=== PATIENT | male | born 1950 | race Caucasian/White ===

== ENCOUNTER 2024-09-08 15:49 | Emergency (ER) | payer OTHER ==
[~2024-09-08] VITALS: Ht 193 cm; Wt 113.6 kg
--- NOTE | 2024-09-08 16:04 | ED.PDOC ---
Altered Mental Status HPI Comments This is a 73 year old male BIBA presenting to the ED with chief complaint of ALOC. EMS reports that the patient had been last seen well at 3pm yesterday when the patient went to bed early due to working all day. EMS relays that the patient's daughter noted the patient was altered today and not acting appropriately, which she notes is most likely due to a UTI as the patient has history of them and he currently smells of urine. Patient denies any fever, chills, dysuria, hematuria, chest pain, or SOB. Time Seen by MD: 16:00 Reviewed Notes: Nurses Notes, Lap Runner Notes, Medications, Allergies Information Source: Patient, Emergency Med Personnel Mode of Arrival: EMS Severity: Moderate, Unable to Care for Self Timing: Hours Duration: Since onset Prehospital treatment: None Quality: Decreased Alertness, Change in Behavior, Confusion Recent: Urinary Symptoms History of: None Past Medical History PAST MEDICAL HISTORY: UTI'S Surgical History (Other): Rt toe amputations Family History Family History: Reviewed,noncontributory to illness Social History Smoker: Non-Smoker Alcohol: Denies ETOH Use Drugs: Denies Drug Use Lives In: Home Constitutional: denies: chills, diaphoresis, fatigue, fever, malaise, sweats, weakness, others EENTM: denies: blurred vision, double vision, ear bleeding, ear discharge, ear drainage, ear pain, ear ringing, eye pain, eye redness, hearing loss, mouth pain, mouth swelling, nasal discharge, nose bleeding, nose congestion, nose pain, photophobia, tearing, throat pain, throat swelling, voice changes, others Respiratory: denies: cough, hemoptysis, orthopnea, SOB at rest, shortness of breath, SOB with excertion, stridor, wheezing, others Cardiovascular: denies: chest pain, dizzy spells, diaphoresis, Dyspnea on exertion, edema, irregular heart beat, left arm pain, lightheadedness, palpitations, PND, syncope, others Gastrointestinal: denies: abdomen distended, abdominal pain, blood streaked bowels, constipated, diarrhea, dysphagia, difficulty swallowing, hematemesis, melena, nausea, poor appetite, poor fluid intake, rectal bleeding, rectal pain, vomiting, others Genitourinary: denies: burning, dysuria, flank pain, frequency, hematuria, incontinence, penile discharge, penile sore, pain, testicle pain, testicle swelling, urgency, others Neurological: denies: dizziness, fainting, headache, left sided numbness, left sided weakness, numbness, paresthesia, pre-existing deficit, right sided numbness, right sided weakness, seizure, speech problems, tingling, tremors, weakness, others Musculoskeletal: denies: back pain, gout, joint pain, joint swelling, muscle pain, muscle stiffness, neck pain, others Integumetry: denies: bruises, change in color, change in hair/nails, dryness, laceration, lesions, lumps, rash, wounds, others Allergic/Immunocompromised: denies: Difficulty Healing, Frequent Infections, Hives, Itching, others Hematologic/Lymphatic: denies: anemia, blood clots, easy bleeding, easy bruising, swollen glands, others Endocrine: denies: excessive hunger, excessive sweating, excessive thirst, excessive urination, flushing, intolerance to cold, intolerance to heat, unexplained weight gain, unexplained weight loss, others Psychiatric: denies: anxiety, bipolar disorder, depression, hopeless, panic disorder, schizophrenia, sleepless, suicidal, others Unable to Obtain due to: Altered Mental Status All Other Systems: Reviewed and Negative Physical Exam General Appearance: Moderate Distress, Normal HEENT: Normal ENT Inspection, Pharynx Normal, TMs Normal Neck: Full Range of Motion, Non-Tender, Normal, Normal Inspection Respiratory: Chest Non-Tender, Lungs Clear, No Accessory Muscle Use, No Respiratory Distress, Normal Breath Sounds Cardiovascular: No Edema, No JVD, No Murmur, No Gallop, Normal Peripheral Pulses, Regular Rate/Rhythm Breast Exam: Deferred Gastrointestinal: No Organomegaly, Non Tender, No Pulsatile Mass, Normal Bowel Sounds, Soft Genitalia: Deferred Pelvic: Deferred Rectal: Deferred Extremities: No calf tenderness, Normal capillary refill, Non-tender, No pedal edema, Other (Old right toe amputation) Musculoskeletal : Apperance: Normal Neurologic: Disoriented Cerebellar Function: NOT DONE Reflexes: NOT DONE Skin: Dry, Normal Color, Warm Peripheral Pulses: 3+ Radial (R), 3+ Radial (L) Lymphatic: No Adenopathy Was a procedure done? Was a procedure done?: No Differential Diagnosis (ALOC) Differential Diagnosis: Dehydration, Encephalopathy, Sepsis X-Ray, Labs, Meds, VS Patient disoriented. Last seen normal yesterday. He is comfortable. Vitals stable. Possible urosepsis. Establish intravenous access. Was given fluids. Was given Rocephin. Unable to get a good history from the patient. No sign of any trauma. Continue to monitor. Time of 1ST Reevaluation: 17:00 Reevaluation 1ST: Unchanged Patient Education/Counseling: Diagnosis, Treatment Family Education/Counseling: No Family Present SEPSIS Sepsis Screen Physician Orders Head Without Contrast (09/08/24 16:01) Complete Blood Count (09/08/24 16:01) Urinalysis (09/08/24 16:01) Basic Metabolic Panel (09/08/24 16:01) Departure 1 Departure Time of Disposition: 16:16 Impression: Primary Impression: Metabolic encephalopathy Disposition: ADMITTED INPATIENT Admit to: Med Surg Condition: Guarded Critical Care Note Critical Care Time?: Yes (90 min-critical care time only) Critical care comment: Monitoring mental status Stability Stability form required: No Heart Score Heart Score: Heart Score Response (Comments) Value History N/A 0 EKG N/A 0 Age N/A 0 Risk Factors N/A 0 Troponin N/A 0 Total 0 I personally scribed for MARY ANNE WHITE MD ([email or web address]) on 09/08/24 at 16:04. Electronically submitted by Wale Mims ([email or web address]). MARY ANNE WHITE MD Sep 08, 2024 16:04
[2024-09-08 16:37] LABS: Hematocrit 45.5 % (41.0-53.0); Hemoglobin 15.2 g/dL (13.5-17.5); Mean Corpuscular Hemoglobin 31.7 pg (28.0-32.0); Mean Corpuscular Volume 94.8 fL (80.0-100.0); Nucleated Red Blood Cells % 0.1 %
[2024-09-08 16:44] LABS: Sodium 141 mmol/L (136-145)
[2024-09-08 16:45] LABS: Anion Gap 10 (5-15); Calcium 9.2 mg/dL (8.7-10.4); Carbon Dioxide 20 mmol/L (20-31)
--- NOTE | 2024-09-08 16:47 | DVH ---
CT HEAD WITHOUT CONTRAST Indication: altered EXAM DATE: 09/08/2024 04:15 PM COMPARISON: None TECHNIQUE: CT of the head without intravenous contrast. RADIATION DOSE: CTDIvol: 49.4 mGy, DLP: 931 mGy*cm FINDINGS: Examination degraded by motion. There is no intracranial hemorrhage. There is no extra-axial fluid, mass, mass effect or midline shif t. The ventricles are midline and normal in size. Basilar cisterns are patent. Mild periventricular a nd subcortical white matter chronic microvascular ischemic changes. Mild global cerebral volume loss. Right mastoid effusion.. Imaged portion of the orbits are unremarkable. Radiopaque debris in the right facial region extending up to the tear void plate. IMPRESSION: No intracranial hemorrhage or mass effect. Mild chronic microvascular ischemic changes. Right mastoid effusion.
[2024-09-08 16:50] LABS: BUN/Creatinine Ratio 20.7 (10.0-20.0); Glucose 91 mg/dL (74-106)
[2024-09-08 16:53] LABS: Chloride 111 mmol/L (98-107); Potassium 5.1 mmol/L (3.5-5.1)
[2024-09-08 16:54] LABS: Blood Urea Nitrogen 34 mg/dL (9-23)
[2024-09-08] MEDS: SODIUM CHLORIDE 0.9% 1,000 ML IV ONE ×2 (17:07→19:00)
[2024-09-08] MEDS: ONDANSETRON HCL 4 MG/2 ML VIAL IV ONE ×2 (17:07→18:59)
[2024-09-08] MEDS: MORPHINE SULFATE 4 MG/ML SYR/VIAL IV ONE ×3 (17:10→23:47)
[2024-09-08] MEDS: cefTRIAXone 2GM/50ML D5W 50 ML IV ONE (18:30)
[2024-09-08 19:13] LABS: INR 1.08 (0.9-1.15); Partial Thromboplastin Time 39.3 SEC (24.5-34.5); Prothrombin Time 11.4 sec (9.3-11.8)
[2024-09-08 19:24] LABS: Urine Protein, UAD 1+ (Negative)
[2024-09-08] MEDS: SULFAMETH-TRIMETH 80/16MG-ML 15 ML in D5W 5% 500 ML IV ONE (19:45)
[2024-09-09 01:36] VITALS: TEMP 98; O2SAT 95
[2024-09-09 01:38] VITALS: BP 156/99; PULSE 12; RESP 12
== END 2024-09-09 01:36 | disposition short-term general hospital (02) ==
LOC: ER 15:49 → EDBD 15:49 → ER 09-09 01:36
DX: G93.41 Metabolic encephalopathy (principal); I48.91 Unspecified atrial fibrillation; Z87.440 Personal history of urinary (tract) infections; Z98.890 Other specified postprocedural states
CPT/HCPCS: 36415; 70450; 80048; 81001; 83605; 85025; 85610; 85730; 87040; 96361; 96365; 96366; 96367; 96375; 96376; 99291; 99292; J0696; J2270; J2405; J3490; J7060; 82947; 96360